=== PATIENT | female | born 1985 | race Two or more races ===

== ENCOUNTER 2020-04-18 22:22 | Outpatient (CLI) | payer OTHER ==
[~2020-04-18] VITALS: Ht 172.7 cm; Wt 109.1 kg
[2020-04-18 22:40] VITALS: BP 128/66
[2020-04-18 22:53] LABS: MICROSCOPIC NOT IND
[2020-04-18 22:58] LABS: BASOPHILS % (AUTO) 0 % (0-1); EOSINOPHILS % (AUTO) 1 % (1-7); LYMPHOCYTES % (AUTO) 29 % (22-44); MEAN CORPUSCULAR HEMOGLOBIN 30.9 pg (27.0-34.8); MEAN CORPUSCULAR HGB CONC 34.1 g/dL (32.4-35.8); MEAN PLATELET VOLUME 7.8 fL (7.4-10.4); MONOCYTES % (AUTO) 7 % (2-9); NEUTROPHILS % (AUTO) 63 % (42-75); PLATELET COUNT 237 x10^3/uL (130-400); RED BLOOD COUNT 3.95 x10^6/uL (3.82-5.3); RED CELL DISTRIBUTION WIDTH 13.9 % (9.6-15.2)
[2020-04-18 23:03] LABS: CREATININE,URINE RANDOM 66.9 mg/dL
[2020-04-18 23:03] LABS: ALANINE AMINOTRANSFERASE 16 U/L (12-78); ALBUMIN 2.5 g/dL (3.4-5.0); ANION GAP 8 mmol/L (5-15); CALCIUM 8.5 mg/dL (8.5-10.1); CHLORIDE 109 mmol/L (98-107); CREATININE 0.59 mg/dL (0.55-1.02)
[2020-04-18 23:06] LABS: BILIRUBIN, DIRECT < 0.1 mg/dL (0.1-0.2)
[2020-04-18 23:13] LABS: ALKALINE PHOSPHATASE 128 U/L (45-117); BILIRUBIN,TOTAL 0.1 mg/dL (0.2-1.0); TOTAL PROTEIN 6.5 g/dL (6.4-8.2)
[2020-04-18 23:42] LABS: MD SCAN
== END 2020-04-18 23:50 | disposition home or self-care (01) ==
LOC: LDOP 22:22
PROVIDERS: ATTEND Obstetrics & Gynecology Maternal & Fetal Medicine
DX: O16.3 Unspecified maternal hypertension, third trimester (principal); Z3A.35 35 weeks gestation of pregnancy
CPT/HCPCS: 36415; 59025; 80053; 81003; 82248; 82570; 84156; 84550; 85025